=== PATIENT | male | born 1960 | race Two or more races ===

== ENCOUNTER 2023-07-06 15:26 | Emergency (ER) | payer SELFPAY | END 2023-07-06 16:50 | disposition home or self-care (01) | LOC: ERS 15:26 | DX: S62.307A Unspecified fracture of fifth metacarpal bone, left hand, initial encounter for closed fracture (principal); S63.512A Sprain of carpal joint of left wrist, initial encounter; I10 Essential (primary) hypertension; E78.5 Hyperlipidemia, unspecified; Y04.0XXA Assault by unarmed brawl or fight, initial encounter | CPT/HCPCS: 29125 ==